=== PATIENT | female | born 1990 | race Caucasian/White ===

== ENCOUNTER 2019-02-08 22:30 | Emergency (ER) | payer SELFPAY ==
--- NOTE | 2019-02-08 23:19 | EDPHY ---
H & P Stated Complaint: Hot, lightheaded, noted to be jittery-within an hour. Time Seen by Provider: 02/08/19 22:49 HPI/ROS: CHIEF COMPLAINT: [place] like she was going to pass out. Had tingling to both hands and feet. Overcome by sensation approximately an hour prior to admission HISTORY OF PRESENT ILLNESS: Essentially she is a medically stable 21-year-old female with undergoing long- term issues related to anxiety. This was a somewhat problematic during her elías year in college however most recently she started seeing a therapist approximately 1 year ago. However, her symptoms today are far worse than that she has ever experienced in the setting of anxiety in the past. Today things went uneventfully. There is no excessive alcohol intake. Certainly no drugs. Two days ago the did have a [place] night where she had several beers but that is not something he does on a regular basis. She has a negative CAGE Questionnaire. Specifically through the day she had her appetite did breakfast and lunch. There is no undue fatigue or sleeplessness. She did not have all that much appetite at the evening meal but that was nothing out of the ordinary. She had half of a hamburger, around 6:50 p.m. She was resting watching TV on the couch, nothing particularly stressed were frightening while she was looking at some cat photos on line at the same time. She is over, by a sense of needing to take a drink but also being unable to swallow effectively and only was able to take the fluids after about 4 tries. She felt her hands to be tremulous and stinging to both hands and feet. She got up and felt as if she was unable to ambulate safely. She stood there, at which time her boyfriend could tell something was wrong and asked her if she was okay. She then attempted to walk around the couch and there is where she felt particularly as if she was unable to stand up feeling the need that she was going to the ground, though did not does not report palpitations or sense of going black, but instead tunnel vision without palpitations. There was also a clamminess though her shirt here is not damp. So she knelt down on the floor. This all transpired the course of 2-3 minutes. There has been some anxiety stressors most recently surrounding a proposed move to [place]. There is a preliminary visit to be scheduled for this Sunday with a job interview this Sunday -5 days from now. Further, she will be leaving her 19-year-old cat behind in having somebody attendant to the cat's needs which is worrying. She resumed therapy 1 year ago and has been as active with a therapist on a monthly basis. No family history of prolonged QT or bicuspid aortic valve. No known personal history of valvular heart disease. 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 To her knowledge she never required an echocardiogram. REVIEW OF SYSTEMS: Constitutional: No fever, no chills. No weight gain or loss. No change in hair pattern. Eyes: No changes in vision. ENT: No sore throat. Cardiovascular: No chest pain, no palpitations. Though did have a sense she was too collapse, there were no palpitations. As she had numbness and poor function of her hands and fingers, she tried unsuccessfully to take her carotid pulse, as above. Respiratory: No cough, shortness of breath, or wheezing. Gastrointestinal: No Nausea, vomiting, abdominal pain or diarrhea Genitourinary: No frequency, or polyuria/polydipsia. Musculoskeletal: No back pain. See above Skin: No rashes. Neurological: No headache. A 10 system review of systems was performed and is negative except for the noted findings in the HPI. Source: Patient Exam Limitations: No limitations - Personal History LMP (Females 10-55): 1-7 Days Ago Current Tetanus/Diphtheria Vaccine: Unsure Current Tetanus Diphtheria and Acellular Pertussis (TDAP): Unsure Tetanus Vaccine Date: 2011 - Medical/Surgical History Hx Asthma: No Hx Chronic Respiratory Disease: No Hx Diabetes: No Hx Cardiac Disease: No Hx Renal Disease: No Hx Cirrhosis: No Hx Alcoholism: No Hx HIV/AIDS: No Hx Splenectomy or Spleen Trauma: No Other PMH: Rib resection-thoracic outlet syndrome. Anxiety. - Family History Significant Family History: No pertinent family hx (N known anxiety or Bipolar disease, but states family has propensity not to acknowledge mental illness.) - Social History Smoking Status: Never smoked Alcohol Use: Occasionally Drug Use: None - Physical Exam Exam: General Appearance: Alert, mild distress, holding hands at times with fingers hyperextended. Afebrile. Normal phonation. No respiratory distress. Eyes: Pupils equal and round no pallor or injection. No icterus ENT, Mouth: Mucous membranes slightly dry Pharynx without erythema or exudate. TM Clear. No thyromegaly Neck: No adenopathy. Supple. No JVD. Trachea in midline. Respiratory: There are no retractions, lungs are clear to auscultation. Cardiovascular: Regular rate and rhythm, without murmur Abdomen: Soft and nontender, no masses, bowel sounds normal. Neurological: Ox3. No motor weakness. Sensation intact. Gait nl. Skin: Warm and dry, no rashes. Musculoskeletal: No joint swelling. Extremities: No edema. Homans sign negative. No cords. Psychiatric: Anxious affect, with good eye contact. Patient is oriented X 3. There is no agitation, No auditory visual hallucinations. She is tremulous, however there is no carpal pedal spasm. Constitutional: Initial Vital Signs Temperature (C) 36.5 C 02/08/19 22:37 Heart Rate 88 02/08/19 22:37 Respiratory Rate 16 02/08/19 22:37 Blood Pressure 148/90 H 02/08/19 22:37 O2 Sat (%) 99 02/08/19 22:37 O2 Delivery Mode Room Air Allergies/Adverse Reactions: iodine Allergy (Severe, Verified 02/08/19 22:42) Anaphylaxis Home Medications: Medication Instructions Recorded LORazepam [Ativan] 1 - 2 tab PO Q8 PRN #15 tablet 02/09/19 Medical Decision Making - Diagnostics EKG Interpretation: EKG: Interpreted by me contemporaneously. Rhythm: Normal sinus rhythm. Heart rate 95 QTc 458 QRS: normal, no delta wave STT segment: normal T Waves: Normal Q waves none Summary: Normal Ekg ED Course/Re-evaluation: An EKG was ordered and did not reflect any prolonged QTC problem pattern. Thus as we are waiting labs she was given 1 mg Ativan sublingually. Staff reported that she had quite a bit difficulty when the idea came up for actual phlebotomy. Thereby they left the Ativan sublingual work and then were able to approach her about getting the blood work done. Laboratory testing includes the following: Normal EKG Normal CBC Normal comp panel Pending thyroid studies CDMP queried and though in data base, no meds alert for past 2 years. Overtime she felt quite a bit better. I met with her at approximately 12:35 p.m. And she reported distinct improvement, able to walk and function well, and expressed goal oriented ideas. It is evident to her that quite a bit of stress her she finds and leaving the cat whom she has not left for several years, though will be interested hands of good friends. Nonetheless is still weighing on her. Differential Diagnosis: Diagnostic considerations include, but are not limited to, the following, 5this represents a partial list of diagnoses considered These considerations are based on history, physical exam, past history, reassessment and diagnostic testing: Near syncope, prolonged QT, panic disorder, endocrine disorder, paroxysmal endocrine disorder. - Data Points Medications Given: Discontinued Medications Lorazepam (Ativan) 1 mg SL ONCE ONE Stop: 02/08/19 23:30 Last Admin: 02/08/19 23:31 Dose: 1 mg Lorazepam (Ativan 1 Mg Prepack#4) 1 btl TAKEHOME EDNOW ONE Stop: 02/09/19 00:39 Last Admin: 02/09/19 00:47 Dose: 1 btl Point of Care Test Results: CBC CBC Collection Date 02/08/19 CBC Collection Time 23:50 WBC 11.96 RBC 4.5 HGB 15 HCT 41.6 PLT 230 Neut # 9.48 Neut 79.3 LYMPH # 1.74 LYMPH 14.5 MCV 92.4 Chemistry 02/08/19 23:54 POC Sodium 139 mEq/L mEq/L (135-145) POC Potassium 3.3 mEq/L mEq/L (3.3-5.0) POC Chloride 108.0 mEq/L mEq/L (97-110) POC Total CO2 19 mEq/L L mEq/L (22-31) POC BUN 11 mg/dL mg/dL (7-23) POC Creatinine 1.0 mg/dL mg/dL (0.6-1.0) POC Glucose 112 mg/dL H mg/dL (70-100) POC Calcium 9.8 mg/dL mg/dL (8.5-10.4) POC Total Bilirubin 1.1 mg/dL mg/dL (0.1-1.4) POC AST 46 IU/L IU/L (14-46) POC ALT 22 IU/L IU/L (9-52) POC Alk Phosphatase 80 IU/L IU/L (38-126) POC Total Protein 7.5 g/dL g/dL (6.3-8.2) POC Albumin 4.1 g/dL g/dL (3.5-5.0) Departure - Departure Disposition: Home, Routine, Self-Care Clinical Impression: Near syncope, Panic anxiety syndrome Condition: Good Instructions: Lorazepam (By mouth), Syncope (ED), Anxiety (ED), Panic Attack ( ED) Additional Instructions: You should check in with your therapist on Sunday regarding tonight as well as more expeditious follow up in next 10 days. Time to get a family doctor, thus the referral to Dr. Anders, our fashion patternmaker doctor who is available for follow up. Do make sure she is in your network for your insurance, however. Ativan - this is for emergency use such as tonight and over the next week should symptoms recur. Beyond that would be up to your family doctor. Call us for the Thyroid testing results in 2-3 days: [phone] You were given Ativan here in the ER. It is important you do not drive or drink or worker machinery for at least 24 hours. Referrals: Ruthie Anders MD [Medical Doctor] - 5-7 days, call for appt. Prescriptions: LORazepam [Ativan] 1 - 2 tab PO Q8 PRN #15 tablet PRN Reason: Anxiety
[2019-02-08] MEDS ORDERED: LORazepam 1 MG TAB SL ONE (23:29)
[2019-02-08] MEDS ORDERED: LORazepam 0.5 MG TAB ONE (23:30)
--- NOTE | 2019-02-08 23:45 | CPEKG ---
Test Reason : OPEN Blood Pressure : / mmHG Vent. Rate : 095 BPM Atrial Rate : 096 BPM P-R Int : 123 ms QRS Dur : 099 ms QT Int : 364 ms P-R-T Axes : 062 059 026 degrees QTc Int : 458 ms Sinus rhythm Confirmed by Keven Enriquez ([id number]) on 02/08/2019 11:44:29 PM Referred By: Keven Enriquez Confirmed By:Keven Enriquez
[2019-02-09] MEDS ORDERED: LORAZEPAM 1 MG PREPACK#4 BTL TAKEHOME ONE (00:38)
[2019-02-09 00:57] VITALS: BP 129/97
== END 2019-02-09 00:50 | disposition home or self-care (01) ==
LOC: CED 22:30
DX: F41.0 Panic disorder [episodic paroxysmal anxiety] (principal); R55 Syncope and collapse
CPT/HCPCS: 80053-ER; 85025-QW-ER; 99284-ER

== ENCOUNTER 2019-02-22 02:00 | Emergency (ER) | payer SELFPAY ==
[2019-02-22] MEDS ORDERED: LORazepam 1 MG TAB PO ONE ×2 (02:31→03:20)
--- NOTE | 2019-02-22 02:37 | EDPHY ---
H & P Time Seen by Provider: 02/22/19 02:06 HPI/ROS: This patient presents with anxiety. She has a long history of this with increased life stressors currently of entertaining it a potential moved to [place] with her boyfriend. They just flew back from [place] to visit the area and she explains that over the past 24 hr she has had a couple panic episodes including 145 min prior to arrival. She took Ativan intermittently since her visit at the end of January here which I reviewed. During that visit on February 08 she had a normal CBC, metabolic panel and TSH as well as EKG. She took Ativan the last for the plane flight 2 days ago and is now out of Ativan. She has a relaxants aching medication regularly but is interested in having medication to try as needed basis. She continues to see her therapist weekly and has appointment [facility] primary care physician in 3 days. Tonight specifically she describes abrupt onset of hand paresthesias with anxiety, "stress vomiting" 2 episodes of vomiting associated with the symptoms that is common for her, brief tearfulness tremulousness chest and throat tightness and diaphoresis. Her physical symptoms of all now resolved exception of lingering anxiety. Her boyfriend drove her in for evaluation tonight. ROS: Constitutional: No recent fevers HEENT: No complaints pulmonary: No cough. No pleuritic pain. Currently no dyspnea. Cardiovascular: No heart palpitations or lightheadedness. No lower extremity swelling. GI: No hematemesis. No abdominal pain Integumentary: No skin rash. Psychiatric: She admits anxiety but denies any other acute psychiatric symptoms. ROS 7 Smoking Status: Never smoked Physical Exam: General Appearance: Alert, no distress. Eyes: Pupils equal and round no pallor or injection. ENT, Mouth: Mucous membranes moist. Respiratory: There are no retractions, lungs are clear to auscultation. Cardiovascular: Regular rate and rhythm. Gastrointestinal: Abdomen is soft and nontender, no masses, bowel sounds normal. Neurological: GCS 15 Skin: Warm and dry, no rashes. Musculoskeletal: Neck is supple nontender. Extremities are symmetrical, full range of motion. Psychiatric: Patient is anxious affect is pleasant and cooperative here. She maintains logical thought content. No pressured speech. No psychotic symptoms. DIFFERENTIAL DIAGNOSIS: After history and physical exam differential diagnosis was considered for anxiety, panic, recent metabolic workup normal doubt metabolic or endocrine condition contributing to tonight symptoms. Constitutional: Initial Vital Signs Temperature (C) 36.8 C 02/22/19 02:05 Heart Rate 110 H 02/22/19 02:05 Respiratory Rate 16 02/22/19 02:05 Blood Pressure 148/96 H 02/22/19 02:05 O2 Sat (%) 94 02/22/19 02:05 O2 Delivery Mode Room Air Allergies/Adverse Reactions: iodine Allergy (Severe, Verified 02/22/19 02:05) Anaphylaxis Home Medications: Medication Instructions Recorded LORazepam [Ativan] 1 - 2 tab PO Q8 PRN #15 tablet 02/09/19 Propranolol HCl [Inderal 10mg (*)] 10 - 20 mg PO BID PRN #20 tab 02/22/19 MDM/Departure - [facility] ED Course/Re-evaluation: Ativan p. O. I counseled her regarding diet E and panic including relaxation techniques, port of exercise influence of stimulants of center. Patient is interested in a trial of propranolol. Will provide propranolol script, Ativan and close follow- up with primary care physician. - Depart Disposition: Home, Routine, Self-Care Clinical Impression: Anxiety Condition: Good Instructions: Anxiety (ED) Additional Instructions: Diagnosis: Anxiety Plan: Regular exercise as described Regular relaxation Propranolol if needed for situational anxiety Ativan in addition if needed. Follow-up with primary care physician on Sunday. Return for any significant worsening despite treatment plan
[2019-02-22 04:23] VITALS: BP 135/95
== END 2019-02-22 04:20 | disposition home or self-care (01) ==
LOC: CED 02:00
DX: F41.9 Anxiety disorder, unspecified (principal)
CPT/HCPCS: 99283-ER